=== PATIENT | female | born 1985 | race Caucasian/White ===

== ENCOUNTER 2016-05-31 14:54 | Emergency (ER) | payer BC ==
[2016-05-31 15:33] VITALS: BP 116/75
[2016-05-31] MEDS ORDERED: Albuterol 2.5 MG/3 ML NEB.SOL* (0.083%) INH ONE (15:41)
[2016-05-31] MEDS ORDERED: predniSONE TAB* 10 MG PO ONE (15:41)
[2016-05-31] MEDS ORDERED: Ipratropium 0.5MG/2.5ML NEB* 0.5 MG/2.5 ML NEB.SOLN INH ONE (15:41)
--- NOTE | 2016-05-31 15:54 | UC ---
Throat Pain/Nasal Abhinav HPI - HPI Summary HPI Summary: 31 yo female with sore throat x 1 day no fever or chills hurts to swallow last week had sinus symptoms which have since resolved - History of Current Complaint Chief Complaint: UCRespiratory Stated Complaint: SORE THROAT Time Seen by Provider: 05/31/16 15:14 Hx Obtained From: Patient Hx Last Menstrual Period: 05/07/16 Onset/Duration: Gradual Onset, Lasting Hours Severity: Moderate Pain Intensity: 4 Pain Scale Used: 0-10 Numeric Cough: None - Epiglottits Risk Factors Epiglottis Risk Factors: Negative - Allergies/Home Medications Allergies/Adverse Reactions: Allergies Allergy/AdvReac Type Severity Reaction Status Date / Time seasonal Allergy Difficulty Uncoded 05/31/16 15:33 Breathing Home Medications: Home Medications Fluticasone HFA 220 mcg(NF) [Flovent HFA 220 Mcg(NF)] 2 puff INH BID PRN [History Confirmed 05/31/16] Ibuprofen TAB* [Advil TAB*] 400 mg PO Q6H PRN 05/31/16 [History Confirmed ] PMH/Surg Hx/FS Hx/Imm Hx Previously Healthy: Yes Endocrine History Of: Denies: Diabetes, Thyroid Disease, Hyperthyroidism, Hypothyroidism, Dyslipidemia Cardiovascular History Of: Denies: Cardiac Disorders, Hypertension, Pacemaker/ICD, Myocardial Infarction , Congestive Heart Failure, Atrial Fibrillation, Deep Vein Thrombosis, Bleeding Disorders Respiratory History Of: Comment Only: Asthma - allergy induced wheezing GI/ History Of: Denies: Gastroesophageal Reflux, Ulcer, Gastrointestinal Bleed, Gall Bladder Disease, Kidney Stones, Diverticulitis, Renal Disease, Urosepsis Neurological History Of: Denies: TIA, CVA, Dementia, Seizures, Migraine Psychological History Of: Denies: Anxiety, Depression, Bipolar Disorder, Schizophrenia, Post Traumatic Stress Disorder Cancer History Of: Denies: Lung Cancer, Colorectal Cancer, Breast Cancer, Prostate Cancer, Cervical Cancer - Surgical History Surgical History: None - Family History Known Family History: Positive: Cardiac Disease, Hypertension, Diabetes, Respiratory Disease, Other - sarcoid - Social History Alcohol Use: Occasionally Substance Use Type: None Smoking Status (MU): Never Smoked Tobacco - Immunization History Most Recent Influenza Vaccination: current Review of Systems Constitutional: Negative Skin: Negative Eyes: Negative ENT: Sore Throat Respiratory: Negative Cardiovascular: Negative Gastrointestinal: Negative Genitourinary: Negative Motor: Negative Neurovascular: Negative Musculoskeletal: Negative Neurological: Negative Psychological: Negative All Other Systems Reviewed And Are Negative: Yes Physical Exam Triage Information Reviewed: Yes Appearance: Well-Appearing, No Pain Distress, Well-Nourished, Other: - bmi 48.7 Vital Signs: Initial Vital Signs Temp 97.3 F 05/31/16 15:29 Pulse 95 05/31/16 15:29 Resp 24 05/31/16 15:29 BP 116/75 05/31/16 15:29 Pulse Ox 99 05/31/16 15:29 Eyes: Positive: Conjunctiva Clear ENT: Positive: Hearing grossly normal, Pharyngeal erythema, TMs normal, Tonsillar swelling. Negative: Nasal congestion, Nasal drainage, Tonsillar exudate, Trismus, Muffled/hoarse voice Neck: Positive: Supple, Nontender, Enlarged Nodes @ - ant cervical Respiratory: Positive: Lungs clear, Normal breath sounds, No respiratory distress Cardiovascular: Positive: RRR, No Murmur Musculoskeletal: Positive: ROM Intact, No Edema Neurological: Positive: Alert Psychological Exam: Normal Skin Exam: Normal Throat Pain/Nasal Course/Dx - Differential Dx/Diagnosis Provider Diagnoses: acute tonsillitis Discharge - Discharge Plan Condition: Stable Disposition: HOME Prescriptions: Amoxicillin (*) 875 mg PO BID #20 tab Patient Education Materials: Tonsillitis (ED) Forms: *Work Release Referrals: KENRICK Escamilla [Primary Care Provider] - Additional Instructions: recheck in 4 days if not better
== END 2016-05-31 16:35 | disposition home or self-care (01) ==
LOC: UCCORT 14:54
DX: J03.90 Acute tonsillitis, unspecified (principal)
CPT/HCPCS: 99212; G0463